=== PATIENT | female | born 1945 | race Caucasian/White ===

== ENCOUNTER 2020-03-12 10:16 | Emergency (ER) | payer MEDICARE, OTHER ==
--- NOTE | 2020-03-12 11:43 | UC ---
Ear Complaint HPI - HPI Summary HPI Summary: 74 year old female who complains of right earache and mild sore throat. She states a sore throat, she thinks, is more from the ear pain. She denies any fever, chills, no cough no shortness of breath. She was tested for Covid 19 last week and was found to be negative. - History of Current Complaint Chief Complaint: UCEar Stated Complaint: SORE THROAT,R EAR CONCERN Time Seen by Provider: 03/12/20 11:05 Hx Obtained From: Patient ?: No Onset/Duration: Gradual Onset, Lasting Days Severity Initially: Mild Severity Currently: Mild Pain Intensity: 4 Aggravating Factors: Nothing Alleviating Factors: Nothing - Allergies/Home Medications Allergies/Adverse Reactions: Allergies Allergy/AdvReac Type Severity Reaction Status Date / Time Sulfa (Sulfonamide Allergy Hives Verified 03/12/20 11:10 Antibiotics) Home Medications: Home Medications Ibuprofen TAB* [Advil TAB*] 2 tab PO Q6HR PRN 06/13/16 [History Confirmed ] Aspirin TAB* [Aspirin 325 MG TAB*] 650 mg PO Q6H PRN 03/12/20 [History Confirmed 03/12/20] PMH/Surg Hx/FS Hx/Imm Hx Previously Healthy: Yes Cancer History: Other - Uterine cancer - Surgical History Surgical History: Yes Surgery Procedure, Year, and Place: HX HYSTERECTOMY. Left knee replacement 2014 - Social History Alcohol Use: Rare Substance Use Type: None Smoking Status (MU): Never Smoked Tobacco Review of Systems All Other Systems Reviewed And Are Negative: Yes ENT: Positive: Sore Throat - Very mild sore throat which the patient thinks is from her ear., Ear Ache - Right earache Is Patient Immunocompromised?: No Physical Exam Triage Information Reviewed: Yes Appearance: Well-Appearing, No Pain Distress, Well-Nourished Vital Signs Reviewed: Yes Eyes: Positive: Conjunctiva Clear ENT: Positive: Pharynx normal, TMs normal, Uvula midline Neck: Positive: Supple, Nontender, No Lymphadenopathy Respiratory: Positive: Lungs clear, Normal breath sounds, No respiratory distress, No accessory muscle use Cardiovascular: Positive: RRR, No Murmur, Pulses Normal, Brisk Capillary Refill Musculoskeletal Exam: Normal Neurological Exam: Normal Psychological Exam: Normal Skin Exam: Normal Ear Complaint Course/Dx - Course Course Of Treatment: The patient is comfortable here. At this point time I find no source for her earache however advised her to be rechecked as needed. - Differential Dx/Diagnosis Provider Diagnosis: Otalgia, right ear, Pharyngitis Discharge ED - Sign-Out/Discharge Documenting (check all that apply): Patient Departure All imaging exams completed and their final reports reviewed: No Studies - Discharge Plan Condition: Good Disposition: HOME Patient Education Materials: Earache (ED) Referrals: Dorinda Casanova MD [Primary Care Provider] - Additional Instructions: Take whatever medication you take for pain. Keep ear ears covered as much as possible in the windy weather. Follow-up with your primary care provider or return here if earache worsens. - Billing Disposition and Condition Condition: GOOD Disposition: Home - Attestation Statements Provider Attestation: I was available for consult. This patient was seen by the ARIEL. The patient was not presented to, seen by, or examined by me. -Torri
[2020-03-12 11:55] VITALS: BP 130/63
== END 2020-03-12 11:53 | disposition home or self-care (01) ==
LOC: UCCORT 10:16
DX: H92.01 Otalgia, right ear (principal); J02.9 Acute pharyngitis, unspecified; Z96.652 Presence of left artificial knee joint; Z88.2 Allergy status to sulfonamides
CPT/HCPCS: 99211; G0463

== ENCOUNTER 2021-01-25 08:58 | Observation (INO) ==
[~2021-01-25 08:58] MED LIST: Buffered Lidocaine 1% SYRIN 1 ml INTRADERM ONE; Lactated Ringers 1000 ml BAG 1,000 ML IV SCH
[2021-01-25] MEDS ORDERED: fentaNYL 100 mcg/2 ml 50 MCG/ML VIAL ONE ×2 (09:53→10:12)
[2021-01-25] MEDS ORDERED: Lidocaine 2% PF 5 ML VIAL ONE (09:53)
[2021-01-25] MEDS ORDERED: Propofol 10 MG/ML 20 ML BTL ONE ×2 (09:59→10:00)
[2021-01-25] MEDS ORDERED: ceFAZolin 2 GM PREMIX 2 GM/50 ML BAG ONE (09:59)
[2021-01-25] MEDS ORDERED: Buffered Lidocaine 1% SYRIN 1 ml INTRADERM ONE (09:59)
[2021-01-25] MEDS ORDERED: Midazolam 5 mg/5 ml VIAL 1 mg/ml 5 ml VIAL (5 mg) ONE (10:11)
[2021-01-25] MEDS ORDERED: ROPIVACAINE 5 MG/ML 30 ML BTL (0.5%) ONE ×2 (10:13→11:09)
[2021-01-25] MEDS ORDERED: Dexmedetomidine 200 mcg/2 ml 2 ml VIAL (200 mcg) ONE (10:45)
[2021-01-25] MEDS ORDERED: diPHENhydraMINE 25 mg TAB PO PRN (15:15)
[2021-01-25] MEDS ORDERED: Lactulose 30 ml UDC PO PRN (15:15)
[2021-01-25] MEDS ORDERED: diPHENhydraMINE IV 50 MG/ML 1 ml VIAL (BENADRYL) IV PRN (15:15)
[2021-01-25] MEDS ORDERED: Morphine 2 MG/ML SYRINGE IV PRN (15:15)
[2021-01-25] MEDS ORDERED: Magnesium Hydroxide LIQ 30 ML UDC PO PRN (15:15)
[2021-01-25] MEDS ORDERED: Ondansetron ODT 4 mg TAB 4 MG TAB PO PRN (15:15)
[2021-01-25] MEDS ORDERED: Ondansetron 4 mg VIAL 2 MG/ML 2 ml VIAL IV PRN (15:15)
[2021-01-25] MEDS: Lactated Ringers 1000 ml BAG 1,000 ML IV SCH (18:03)
[2021-01-25] MEDS: ceFAZolin 1 GM ADVAN 1 GM in NS 0.9% 50 ML 50 ML IVPB SCH (21:57)
[2021-01-25] MEDS: Magnesium Hydroxide LIQ 30 ML UDC PO SCH (21:58)
[2021-01-26 05:54] LABS: Hematocrit 36 % (35-47); Hemoglobin 11.7 g/dL (12.0-16.0); Mean Platelet Volume 6.9 fL (7.4-10.4); Platelet Count 234 10^3/uL (150-450)
[2021-01-26 06:01] LABS: BUN/Creatinine Ratio 28.8 (8-20); Calcium 8.5 mg/dL (8.6-10.3); EGFR African American 120.2 (>60); EGFR Non-African American 99.4 (>60); Potassium 4.6 mmol/L (3.5-5.0)
[2021-01-26] MEDS: Lactated Ringers 1000 ml BAG 1,000 ML IV SCH (06:14)
[2021-01-26] MEDS: ceFAZolin 1 GM ADVAN 1 GM in NS 0.9% 50 ML 50 ML IVPB SCH ×2 (06:15→13:12)
[2021-01-26] MEDS: Magnesium Hydroxide LIQ 30 ML UDC PO SCH ×2 (08:50→22:05)
[2021-01-26] MEDS: Vitamin THERAPEUTIC TAB PO SCH (08:50)
[2021-01-27 06:14] LABS: Hematocrit 34 % (35-47); Hemoglobin 11.6 g/dL (12.0-16.0); Mean Platelet Volume 6.8 fL (7.4-10.4); Platelet Count 203 10^3/uL (150-450)
[2021-01-27 07:27] VITALS: BP 108/56
[2021-01-27] MEDS: Vitamin THERAPEUTIC TAB PO SCH (08:52)
[2021-01-27] MEDS: Magnesium Hydroxide LIQ 30 ML UDC PO SCH (08:52)
== END 2021-01-27 10:40 | disposition home or self-care (01) ==
LOC: SSU 08:58 → OR 08:58
PROVIDERS: ADMIT Orthopaedic Surgery Adult Reconstructive Orthopaedic Surgery; ATTEND Orthopaedic Surgery Adult Reconstructive Orthopaedic Surgery